=== PATIENT | male | born 1940 | race Hispanic/Latino ===

== ENCOUNTER 2017-03-10 06:02 | Day surgery (SDC) | payer MEDICARE ==
[2017-03-08 13:53] VITALS: BMI 28.5
[2017-03-10 06:37] VITALS: O2SAT 98
[2017-03-10] MEDS ORDERED: Phenylephrine 10 mg/ml Inj ONE (06:37)
[2017-03-10] MEDS ORDERED: Lidocaine 2% Inj (20ml) ONE (06:37)
[2017-03-10] MEDS ORDERED: Nitroglycerin 50mg in D5W 0 MG/0 ML BOTTLE IV ONE (06:38)
[2017-03-10] MEDS ORDERED: Iohexol 350mgl/ml 50 ML ONE (06:38)
[2017-03-10] MEDS ORDERED: Iodixanol 320 MG/ML 200 ML BOTTLE IV ONE (06:38)
[2017-03-10] MEDS ORDERED: Iodixanol 320 MG/ML 100 ML BOTTLE IV ONE (06:38)
[2017-03-10] MEDS ORDERED: Midazolam 2 MG/2 ML VIAL ONE ×2 (06:54→07:28)
[2017-03-10] MEDS ORDERED: Sodium Chloride 0.9% 1,000 ML IV SCH (08:45)
[2017-03-10] MEDS ORDERED: Metoprolol Succinate 50 mg XL Tab PO SCH (10:00)
--- NOTE | 2017-03-10 11:41 | CARD ---
APPROVED REPORT EKG Measurement Heart [id number] [place] [id number] <Conclusion> Sinus bradycardia Inferior infarct, age undetermined Abnormal ECG
[2017-03-10 14:18] VITALS: PULSE 56
[2017-03-10] MEDS: Insulin Reg-LOW-Coverage SC SCH ×2 (14:32→16:30)
[2017-03-10 15:03] VITALS: BP 136/79; RESP 18; TEMP 98.7
[2017-03-10] MEDS ORDERED: Insulin Reg-LOW-Coverage SC SCH (16:30)
--- NOTE | 2017-03-10 19:06 | CARD ---
APPROVED REPORT EKG Measurement Heart [id number] <Conclusion> Sinus bradycardia Inferior infarct, age undetermined Poor R Progression V1-V3.
--- NOTE | 2017-03-11 08:23 | CARDCATH ---
CARDIAC CATHETERIZATION REPORT PROCEDURE DATE: 03/10/2017 PROCEDURES: 1. Selective left and right coronary angiography. 2. Left ventriculography. 3. Percutaneous coronary intervention of obtuse marginal branch. 4. Right femoral arteriography. 5. Angio-Seal deployment. HISTORY: This is a 76-year-old male with known coronary artery disease, status post prior inferior myocardial infarction and PCI of his RCA and LAD who has had worsening chest discomfort. A recent stress test showed evidence of inferolateral and basal anterolateral defect suggestive of ischemia and cardiac catheterization was recommended. INDICATIONS: As above. FINDINGS: HEMODYNAMICS: The aortic pressure was 120/70 with left ventricular pressure of 120/10. CORONARY ANATOMY: 1. The left mainstem was normal. 2. The left anterior descending artery had mild 40% lesion proximally. The previously placed stent in the early mid portion of the vessel was widely patent. The distal vessel had mild irregularities. The diagonal branches were moderate size with mild irregularities. 3. The left circumflex artery, which gave rise to one large obtuse marginal branch. The circumflex artery was mildly calcified in this proximal segment and moderately tortuous. The obtuse marginal vessel had a complex 90% lesion in its mid portion. After the lesion, the vessel bifurcated into two moderate size subbranches. 4. The right coronary artery was dominant. The previously placed stent in mid portion had 50% in-stent restenosis and the distal stent had 60% in-stent restenosis well. Beyond this stent, the vessel was totally occluded and distal vessel filled the right to left collaterals. LEFT VENTRICULOGRAPHY: Left ventriculogram was performed with hand injection only in the VALVERDE projection. This revealed evidence of mild posterior basal hypokinesis with an overall ejection fraction of 50%. CORONARY INTERVENTION: Given the above, attempted PCI of the obtuse marginal branch was then performed. The lesion in the left circumflex artery was successfully crossed with the use of a [place] wire. Following this, a 2.5 x 12 mm Sprinter balloon was advanced and several inflation was performed to 8 atmospheres for 30 seconds at the side of lesion. The balloon was then withdrawn. Following this attempts to advanced a 2.75 x 18 mm Resolute drug eluting stent was unsuccessful. A Choice PT wire was taken and advanced into the distal circumflex as well to serve as a clarita wire. An attempts were then made to advanced the stent balloon again without success due to the proximal tortuosity and calcification. The stent balloon was then removed and initial 2.5 mm Sprinter balloon was advanced and low pressure inflations were performed in the tortuous segment of the proximal circumflex. Following this, the 2.75 x 18 mm Resolute stent was then successfully advanced and deployed to 12 atmosphere for 45 seconds. There was 0% residual stenosis following intervention. They did appear to be evidence of a distal small dissection likely induced by the wire. An attempts were then made to advanced the 2.5 x 12 mm Resolute drug-eluting stent into the distal vessel; however, the stent could not passed the proximal calcified segment. Again inflations were performed of the initial 2.5 mm balloon in the tortuous segment vessel; however, repeat attempts to advanced the stent was unsuccessful. Followup angiography reveals the dissection to be stable and non-flow limiting. REBECA grade 3 flow was present before and after the intervention. The patient was watching the catheter and was chest pain free with no evidence of adverse affect from the small dissection. A total of 4000 units of intravenous heparin had been administered and ACT was 220 seconds during the procedure. CONCLUSION: 1. Patent LAD and RCA stent with moderate RCA in-stent restenosis and total occlusion of the distal vessel with left to right collaterals. 2. Severe obtuse marginal stenosis successfully treated with placement of a 2.75 x 18 mm Resolute drug-eluting stent. 3. Mildly reduced LV systolic function. RECOMMENDATIONS: Aspirin and Plavix therapy will be continued for at least 1 year. Continue risk factors control as advised. Hakeem Ibrahim MD cc: Lefty Collins MD
== END 2017-03-10 21:28 | disposition home or self-care (01) ==
LOC: CATH 06:02 → 2RSO 08:53 → CATH 21:28
PROVIDERS: ATTEND Internal Medicine Cardiovascular Disease
DX: I25.10 Atherosclerotic heart disease of native coronary artery without angina pectoris (principal); T82.858A Stenosis of other vascular prosthetic devices, implants and grafts, initial encounter; I25.82 Chronic total occlusion of coronary artery; I25.2 Old myocardial infarction; I10 Essential (primary) hypertension; E11.9 Type 2 diabetes mellitus without complications; Z95.5 Presence of coronary angioplasty implant and graft
CPT/HCPCS: 36415; 82948; 85175; 86850; 86900; 93005; 93458; 99152; 99153; C1725; C1769 ×3; C1874; C1887; C2629; C9600; J1644 ×2; J2250; J3010; J7040 ×2; Q9967 ×2

== ENCOUNTER 2017-08-02 11:58 | Inpatient (IN) | payer MEDICARE ==
--- NOTE | 2017-08-02 13:55 | ED PDOC ---
Arrival/HPI - General Chief Complaint: Lower Extremity Problem/Injury Time Seen by Provider: 08/02/17 13:24 Historian: Patient - History of Present Illness Narrative History of Present Illness (Text): 08/02/17 13:50 77 year old male, whose past medical history includes diabetes, presents to the emergency department sent by Dr. Surekha Salguero for admission for right toe infection. Patient states he noticed a small infection on the toe area which he scratched and later becam red and infected. Patient denies any fever, chills, chest pain, shortness of breath, nausea, vomiting, diarrhea, urinary symptoms, back pain, neck pain, headache, dizziness, or any other complaints. PMD: Dr. Miller Symptom Onset: Gradual Symptom Course: Unchanged Activities at Onset: Light Context: Home Past Medical History - Provider Review Nursing Documentation Reviewed: Yes - Tetanus Immunization Tetanus Immunization: Unknown - Cardiac Hx Cardiac Disorders: Yes Hx Hypertension: Yes - Pulmonary Hx Respiratory Disorders: No - Neurological Hx Neurological Disorder: No - HEENT Hx HEENT Disorder: Yes Hx Cataracts: Yes Other/Comment: WEARS RX GLASSES - Renal Hx Renal Disorder: Yes Hx Kidney Stones: Yes - Endocrine/Metabolic Hx Endocrine Disorders: Yes Hx Diabetes Mellitus Type 2: Yes Hx Hypothyroidism: Yes (pt denies) - Hematological/Oncological Hx Blood Disorders: No - Integumentary Hx Dermatological Disorder: Yes Other/Comment: CELLULITIS OF TOE,DIABETIC FOOT INFECTION - Musculoskeletal/Rheumatological Hx Musculoskeletal Disorders: No - Gastrointestinal Hx Gastrointestinal Disorders: No - Genitourinary/Gynecological Hx Genitourinary Disorders: Yes Hx Prostate Problems: Yes (BPH) - Psychiatric Hx Psychophysiologic Disorder: No Hx Substance Use: No - Surgical History Hx Coronary Stent: Yes Hx Orthopedic Surgery: Yes (L KNEE) - Anesthesia Hx Anesthesia Reactions: No Hx Malignant Hyperthermia: No - Suicidal Assessment Feels Threatened In Home Enviroment: No Family/Social History - Physician Review Nursing Documentation Reviewed: Yes Family/Social History: No Known Family HX Smoking Status: Former Smoker Hx Alcohol Use: Yes (RARELY ON OCCASION) Hx Substance Use: No Hx Substance Use Treatment: No Allergies/Home Meds Allergies/Adverse Reactions: Allergies No Known Allergies Allergy (Verified 08/02/17 12:42) Home Medications: Home Meds Medication Instructions Recorded Confirmed Atorvastatin Calcium [Lipitor] 20 mg PO DAILY 11/02/12 08/02/17 Solifenacin Succinate [Vesicare] 5 mg PO DAILY 11/02/12 08/02/17 Clopidogrel [Plavix] 75 mg PO DAILY 02/01/13 08/02/17 Allopurinol [Zyloprim] 300 mg PO DAILY 03/08/17 08/02/17 Aspirin [Aspirin EC] 325 mg PO DAILY 03/08/17 08/02/17 Enalapril Maleate [Vasotec] 2.5 mg PO DAILY 03/08/17 08/02/17 Insulin Aspart, Recombinant 10 unit SC ACBD 03/08/17 08/02/17 [Novolog] Insulin Detemir [Levemir] 24 unit SC HS 03/08/17 08/02/17 Review of Systems - Physician Review All systems were reviewed & negative as marked: Yes - Review of Systems Constitutional: absent: Fevers, Other (Chills) Respiratory: absent: SOB Cardiovascular: absent: Chest Pain Gastrointestinal: absent: Diarrhea, Nausea, Vomiting Musculoskeletal: absent: Back Pain, Neck Pain Skin: Other (Right toe infection) Neurological: absent: Headache, Dizziness Physical Exam Vital Signs Reviewed: Yes Vital Signs Temp Pulse Resp BP Pulse Ox 08/02/17 17:20 74 18 151/83 H 97 08/02/17 16:13 98.5 F 70 24 153/74 H 95 08/02/17 14:00 80 18 149/88 98 08/02/17 12:44 97.7 F 79 16 131/78 95 Temperature: Afebrile Blood Pressure: Normal Pulse: Regular Respiratory Rate: Normal Appearance: Positive for: Well-Appearing, Non-Toxic, Comfortable Pain Distress: None Mental Status: Positive for: Alert and Oriented X 3 - Systems Exam Head: Present: Atraumatic, Normocephalic Pupils: Present: PERRL Extroacular Muscles: Present: EOMI Conjunctiva: Present: Normal Mouth: Present: Moist Mucous Membranes Neck: Present: Normal Range of Motion Respiratory/Chest: Present: Clear to Auscultation, Good Air Exchange. No: Respiratory Distress, Accessory Muscle Use Cardiovascular: Present: Regular Rate and Rhythm, Normal S1, S2. No: Murmurs Abdomen: Present: Normal Bowel Sounds. No: Tenderness, Distention, Peritoneal Signs Back: Present: Normal Inspection Upper Extremity: Present: Normal Inspection. No: Cyanosis, Edema Lower Extremity: Present: Other (Right foot bandaged ). No: Edema Neurological: Present: GCS=15, CN II-XII Intact, Speech Normal Skin: Present: Warm, Dry, Normal Color. No: Rashes Psychiatric: Present: Alert, Oriented x 3, Normal Insight, Normal Concentration Medical Decision Making ED Course and Treatment: 08/02/17 13:50 Impression: 77 year old male presents for evaluation and admission for right toe infection. Patient sent in by Dr. Salguero. Pt past medical history includes diabetes. Plan: -- Labs -- Blood Culture -- Foot Right 3 Views X-Ray -- Reassess and disposition Progress Notes: - Lab Interpretations Lab Results: 08/02/17 13:40 08/02/17 13:40 Lab Results 08/02/17 13:40: Sodium 138, Potassium 4.5, Chloride 101, Carbon Dioxide 25, Anion Gap 16, BUN 20, Creatinine 1.0, Est GFR ( Amer) > 60, Est GFR (Non- Af Amer) > 60, Random Glucose 218 H, Calcium 9.6, Total Bilirubin 1.0, AST 20, ALT 31, Alkaline Phosphatase 88, Total Protein 6.9, Albumin 3.9, Globulin 3.0, Albumin/Globulin Ratio 1.3 08/02/17 13:40: WBC 8.1, RBC 4.72, Hgb 14.9, Hct 44.1, MCV 93.4, MCH 31.6, MCHC 33.8, RDW 13.3, Plt Count 152, MPV 10.6, Gran % 81.6 H, Lymph % (Auto) 8.9 L, Lipscomb % (Auto) 8.4 H, Eos % (Auto) 0.7 L, Baso % (Auto) 0.4, Gran # 6.58 H, Lymph # (Auto) 0.7 L, Lipscomb # (Auto) 0.7 H, Eos # (Auto) 0.1, Baso # (Auto) 0.03 I have reviewed the lab results: Yes - RAD Interpretation Radiology Orders: 08/02/17 13:47 FOOT RIGHT 3 VIEWS ROUTINE [RAD] Stat - Medication Orders Current Medication Orders: Allopurinol (Zyloprim) 300 mg PO DAILY [facility] Last Admin: 08/02/17 17:23 Dose: Aspirin (Ecotrin) 325 mg PO DAILY [facility] Last Admin: 08/02/17 17:19 Dose: 325 mg Atorvastatin Calcium (Lipitor) 20 mg PO HS [facility] Clopidogrel Bisulfate (Plavix) 75 mg PO DAILY [facility] Insulin Detemir (Levemir) 24 unit SC HS [facility] Insulin Human Lispro (Humalog) 10 units SC ACBD [facility] Last Admin: 08/02/17 17:18 Dose: 10 units MAR Blood Glucose Document 08/02/17 17:18 [facility] (Rec: 08/02/17 17:19 [facility] [id number]) Blood Glucose Finger Stick Blood Glucose (70-120) 202 Subcutaneous Administrations Document 08/02/17 17:18 [facility] (Rec: 08/02/17 17:19 [facility] [id number]) Injection Site MAR Injection Site Left Arm Charges for Administration # of Subcutaneous Administrations 1 Insulin Human Regular (Humulin R High) 0 units SC ACHS [place] PRN Reason: Protocol Solifenacin Succinate [Vesicare] 5 Mg 5 mg PO DAILY [facility] Last Admin: 08/02/17 17:23 Dose: Discontinued Medications Ceftaroline Fosamil 600 mg/ (Sodium Chloride) 100 mls @ 100 mls/hr IVPB STAT STA PRN Reason: Protocol Stop: 08/02/17 16:09 Last Admin: 08/02/17 16:00 Dose: 100 mls/hr eMAR Start Stop Document 08/02/17 16:00 [facility] (Rec: 08/02/17 16:14 [facility] [id number]) Intravenous Solution Start Date 08/02/17 Start Time 16:00 End Date 08/02/17 End time 17:00 Total Infusion Time 60 - Scribe Statement The provider has reviewed the documentation as recorded by the Chavo Watters Provider Scribe Attestation: All medical record entries made by the Scribe were at my direction and personally dictated by me. I have reviewed the chart and agree that the record accurately reflects my personal performance of the history, physical exam, medical decision making, and the department course for this patient. I have also personally directed, reviewed, and agree with the discharge instructions and disposition. Disposition/Present on Arrival - Present on Arrival Any Indicators Present on Arrival: No History of DVT/PE: No History of Uncontrolled Diabetes: Yes Urinary Catheter: No History of Decub. Ulcer: No History Surgical Site Infection Following: None - Disposition Have Diagnosis and Disposition been Completed?: Yes Diagnosis: Cellulitis of toe of right foot Disposition: HOSPITALIZED Disposition Time: 14:00 Condition: STABLE
[2017-08-02 14:40] LABS: ALB/GLOB RATIO 1.3 (1.1-1.8); ALBUMIN 3.9 g/dL (3.0-4.8); ALT/SGPT 31 U/L (7-56); AST/SGOT 20 U/L (17-59); BLOOD UREA NITROGEN 20 mg/dL (7-21); CALCIUM 9.6 mg/dL (8.4-10.5); GFR AFRICAN-AMERICAN > 60; GFR NON-AFRICAN AMERICAN > 60
[2017-08-02 14:44] LABS: BASO # 0.03 K/mm3 (0.0-2.0); BASO % 0.4 % (0.0-3.0); EOS # 0.1 (0.0-0.7); EOS % 0.7 % (1.5-5.0); GRAN # 6.58 (1.4-6.5); GRAN % 81.6 % (50.0-68.0); HEMOGLOBIN 14.9 g/dL (14.0-18.0); LYMPH # 0.7 (1.2-3.4); LYMPH % 8.9 % (22.0-35.0); MEAN CELL VOLUME 93.4 fl (80.0-105.0); MEAN CORPUSCULAR HEMOGLOBIN 31.6 pg (25.0-35.0); MEAN CORPUSCULAR HGB CONC 33.8 g/dl (31.0-37.0); MEAN PLATELET VOLUME 10.6 fl (7.0-11.0); MONO # 0.7 (0.1-0.6); MONO % 8.4 % (1.0-6.0); RBC 4.72 10^6/uL (3.5-6.1); RED CELL DISTRIBUTION WIDTH 13.3 % (11.5-14.5); WHITE BLOOD COUNT 8.1 10^3/ul (4.5-11.0)
[2017-08-02] MEDS ORDERED: Ceftaroline 600 MG in Sodium Chloride 0.9% 100 ML IVPB STA (15:10)
--- NOTE | 2017-08-02 16:17 | RAD ---
PROCEDURE: Right Foot Radiographs. HISTORY: great toe infection COMPARISON: None. FINDINGS: BONES: Bone alignment and mineralization are normal. There is acute fracture. There is relative lucency in the lateral base of the distal phalanx of the great toe. There is a prominent plantar calcaneal spur. 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 There is mild degenerative osteoarthrosis in the talonavicular joint. SOFT TISSUES: There is mild soft tissue swelling in the great toe. OTHER FINDINGS: Atherosclerotic vascular calcifications are present. IMPRESSION: Lucency in the lateral base of the distal phalanx of the great toe could represent early osteomyelitis however no definite evidence for bone destruction or cortical erosion. Mild soft tissue swelling in the great toe may be related to cellulitis. If clinically indicated, MRI may be performed for definitive evaluation.
[2017-08-02] MEDS: Aspirin 325 mg EC Tablets PO SCH ×3 (17:18→17:24)
[2017-08-02] MEDS: Insulin Lispro 1 UNITS/0.01 ML SC SCH (17:18)
[2017-08-02] MEDS: SOLIFENACIN SUCCINATE 5 MG PO SCH (17:23)
[2017-08-02] MEDS: Vancomycin 1gm in NS 250ml 1 GM/250 ML BAG IVPB SCH (22:00)
[2017-08-02] MEDS: Insulin Detemir 100 units/ml Vial (Levemir) SC SCH (22:00)
[2017-08-02] MEDS: Insulin Reg-HIGH-Coverage SC SCH (22:08)
[2017-08-02 23:13] VITALS: BMI 31.1
[2017-08-02] MEDS ORDERED: Influenza Vaccine 60 mcg/0.5 mL SYR (4YR UP) IM ONE (23:13)
[2017-08-02] MEDS ORDERED: Pneumococcal 23-Valent Vaccine IM ONE (23:13)
[2017-08-03] MEDS: Insulin Lispro 1 UNITS/0.01 ML SC SCH ×2 (08:01→17:39)
[2017-08-03] MEDS: Insulin Reg-HIGH-Coverage SC SCH ×4 (08:01→21:33)
[2017-08-03] MEDS: Vancomycin 1gm in NS 250ml 1 GM/250 ML BAG IVPB SCH ×2 (08:07→20:03)
[2017-08-03] MEDS: Aspirin 325 mg EC Tablets PO SCH (09:40)
[2017-08-03] MEDS: SOLIFENACIN SUCCINATE 5 MG PO SCH (11:00)
--- NOTE | 2017-08-03 13:45 | US ---
PROCEDURE: Lower extremity DALE exam HISTORY: Peripheral vascular disease with pain and ulceration. Diabetes. Previous smoker PHYSICIAN(S): Ricky Moore MD. FINDINGS: The right resting DALE is borderline abnormal, 0.89. The left resting DAEL is normal, 0.9 The brachial systolic pressures are symmetric. The high thigh pressures are noncompressible. The high thigh PVR waveforms are normal and symmetric. The calf PVR waveforms augment normally. No significant gradients are noted across the thighs. The ankle PVR waveforms are pulsatile and relatively normal. The metatarsal waveforms are moderately blunted. This could represent pedal occlusive disease. IMPRESSION: 1. Borderline abnormal right DALE at rest. 2. Possible pedal occlusive disease.
[2017-08-03] MEDS: Insulin Detemir 100 units/ml Vial (Levemir) SC SCH (21:40)
[2017-08-04] MEDS: Piperacillin/Tazobact 3.375 gm 100 ML IVPB SCH ×4 (00:30→17:37)
--- NOTE | 2017-08-04 02:46 | HP ---
DATE OF EXAM: CHIEF COMPLAINT AND HISTORY OF PRESENT ILLNESS: This is a 77-year-old male who is coming in to the hospital with past medical history of diabetes. The patient was seen by Dr. Salguero in her office and was found to have a right toe infection. It was not improving. It has failed outpatient treatments, so, the patient had been advised to go to the ER for further evaluation. The patient had no complaints of any fever, no chills. No nausea, no vomiting, no chest pain, abdominal pain or back pain. No dysuria or frequency. No nocturia. REVIEW OF SYSTEMS: All other review of symptoms are within normal limits except what was mentioned. ALLERGIES: NO KNOWN DRUG ALLERGIES. HOME MEDICATIONS: Has been reviewed on the [facility]. He is on Lipitor, Vesicare, Plavix, allopurinol, aspirin, enalapril, Novolog, Levemir. PAST MEDICAL HISTORY: BPH, hypertension, dyslipidemia, diabetes type 2. PAST SURGICAL HISTORY: Appendectomy, inguinal hernia repair. SOCIAL HISTORY: He does drink beer socially. He quit smoking about 40 years ago. FAMILY HISTORY: Noncontributory. PHYSICAL EXAMINATION: VITAL SIGNS: Temperature is 97.9, pulse is 60, blood pressure is 121/75, respirations 20, O2 saturation is 95%. Height is 6 feet, weight is 230 pounds, BMI is 31.2. GENERAL: The patient is lying in bed, uncomfortable, and in no acute distress. HEENT: Atraumatic and normocephalic. Anicteric sclerae. Moist mucosa. [place] conjunctivae. No oral lesions. NECK: No JVD, anterior and posterior adenopathy, thyromegaly, or bruits. CARDIOVASCULAR: S1 and S2 regular. No murmur, rubs, or gallop. LUNGS: Clear to auscultation bilaterally. No wheezes, rales, or rhonchi. ABDOMEN: Bowel sounds are positive. Soft, nontender and nondistended. No hepatosplenomegaly. No rebound and no guarding EXTREMITIES: No cyanosis, clubbing, or edema. NEUROLOGIC: No facial asymmetry. Tongue is midline. No uvula deviation. Power is 5/5 upper extremity and lower extremity. Sensation intact in upper extremity and lower extremity. PSYCHIATRIC: He is awake, alert and oriented x3. No anxiety or depression. He has normal affect. GENITOURINARY: No CVA tenderness. VASCULAR: 2+ pulses in the carotid pulses and pedal pulses. SKIN: No erythema or nodules SPINE: Shows normal curvature. LABORATORY DATA: White count of 8.1, hemoglobin 14.9. Chemistry shows sodium 138, potassium 4.5, hemoglobin A1c is 8.1. C-reactive protein is greater than 15. Right foot x-ray done shows lucency in the lateral base of the distal phalanx of the right toe consistent with early osteomyelitis. Lower extremity arterial Doppler showed borderline abnormal right ABIs at rest. ASSESSMENT: 1. Right toe ulcer. 2. Diabetes type 2. 3. Dyslipidemia. 4. Hypertension. 5. Obesity with body mass index of 31. 6. Hyperuricemia. PLAN: The patient is going to be admitted to the hospital. The patient has a foot ulcer that failed outpatient treatment. He had a diabetic foot ulcer, so will need further management by Podiatry. I have asked Dr. Salguero to continue to follow the patient as an inpatient. I will get Dr. Alicea for consultation as well. The patient was given the flu shot. He is on aspirin daily. He may have peripheral arterial disease, but mild on the ultrasound. He is on Lipitor for dyslipidemia. I will increase his statin therapy. The patient is on Plavix daily. He is going to continue with vancomycin for antibiotic. He is on allopurinol for his hyperuricemia. He is on a carbohydrate consistent diet. He is on insulin with coverage. His blood cultures have been done. The blood cultures are negative x2. We will await for the input from the consultants. The patient may need an MRI as the CT is abnormal. Adal Guzman MD
--- NOTE | 2017-08-04 03:57 | CON ---
DATE: 08/03/2017 CHIEF COMPLAINT: Right foot infection x1 week. HISTORY OF PRESENT ILLNESS: This is a 77-year-old male with past medical history of hypertension, coronary artery disease, diabetes mellitus, referred by Dr. Salguero for admission and a right foot infection. The patient denies any fevers, any chills, nausea or vomiting. No chest pain. No diarrhea or constipation. PAST MEDICAL HISTORY: Significant for diabetes mellitus, coronary artery disease, hypertension, high cholesterol and BPH. PAST SURGICAL HISTORY: Significant for left hernia surgery, appendectomy, left temporal skin biopsy in May 2011. The patient also with cardiac stents placement and a left knee replacement 12 years ago. ALLERGIES: THE PATIENT HAS NO KNOWN ALLERGIES. MEDICATIONS AT HOME: Noted to be VESIcare, insulin, glyburide, enalapril, Plavix. PHYSICAL EXAMINATION: VITAL SIGNS: The patient's temperature is 98, blood pressure is 121/75, respiratory rate of 20, heart rate of 86. HEENT: Unremarkable. NECK: Supple. LUNGS: Decreased breath sounds. HEART: Normal S1, S2. ABDOMEN: Soft, nontender. EXTREMITIES: Examination of the right foot has erythema, big toe has ulcer and necrotic area. LABORATORY DATA: Reveals a white count of 8.1, hemoglobin of 14, platelets of 152. Sed rate is 26. BUN of 20, creatinine of 1.0. C-reactive protein is greater than 15. Blood cultures are negative. ASSESSMENT AND PLAN: A 77-year-old male with hypertension, coronary artery disease, diabetes, high cholesterol, benign prostatic hypertrophy, presenting with a right foot cellulitis and right big toe ulcer and must rule out underlying osteomyelitis and peripheral vascular disease. We will check on the culture results and currently we can start the patient on vancomycin, pending initial workup results, we will follow closely with you, and Alea. Korey Alicea MD
[2017-08-04 07:46] VITALS: RESP 20
--- NOTE | 2017-08-04 08:22 | CON ---
DATE: 08/03/2017 HISTORY OF PRESENT ILLNESS: A 77-year-old diabetic male seen at bedside for consultation, evaluation and management of a diabetic right great toe infection. The patient states that he noticed a small opening of skin on his right great toe approximately 3 weeks ago and he attempted to remove some dry skin in the area and subsequently became infected. He noticed that it had become red hot swollen, and he went to see Dr. Salguero at the wound center where he was probably admitted. PAST MEDICAL HISTORY: Includes insulin-dependent diabetes with peripheral neuropathy and peripheral vascular disease, hypothyroidism, renal disease, BPH, CAD and hypertension. PAST SURGICAL HISTORY: Includes previous foot surgery from diabetic ulcerations and left knee surgery as well as coronary stenting. FAMILY HISTORY: Unremarkable. SOCIAL HISTORY: There is no history of substance abuse, no history of alcohol abuse. ALLERGIES: THE PATIENT HAS NO KNOWN DRUG ALLERGIES. HOME MEDICATIONS: Include Lipitor, Plavix, Vesicare, Vasotec, aspirin, Novolog and Levemir. PHYSICAL EXAMINATION: VITAL SIGNS: Revealed temperature of 98, pulse rate of 68, blood pressure of 134/72, respiratory rate of 20. EXTREMITIES: Nonpalpable pedal pulses noted bilaterally. Absent pedal hair growth noted bilaterally. The patient is unable to detect 5.07 g monofilament wire testing bilaterally. Capillary filling time is delayed in all digits. +1 nonpitting lower extremity edema noted bilaterally. There is a full-thickness ulceration located on the medial aspect of the right hallux. Right hallux is edematous and erythematous. There is noted to be no purulent drainage emanating from the ulceration. Ulceration is irregularly shaped and measures approximately 2.5 cm x 1.2 cm x 0.1 cm. There is noted to be a small patch of gangrenous tissue. There is noted to be a small island of gangrenous tissue. There is no malodor and there is no signs of ascending cellulitis. LABORATORY DATA: Reveal a white count of 8.1, hemoglobin of 14.9, hematocrit of 44.1, platelet count of 152, and ESR of 26. Culture taken on 08/02/2017 of the right hallux ulceration reveals many Gram-negative rods and many Gram-negative cocci. X-ray report reveals lucency in the lateral base of the distal phalanx of the right great toe, which could indicate early osteomyelitis. However, there is no cortical destruction or erosion noted. Arterial Dopplers revealed borderline abnormal DALE at rest and possible pedal occlusive disease. ASSESSMENT: Diabetic ulceration on the right hallux with accompanying cellulitis. PLAN: The patient's wound was seen, and new culture was taken and submitted for sensitivities. The wound was cleansed with normal sterile saline. Application of Xeroform and a dry sterile dressing was applied. An MRI was ordered for more definitive diagnosis to rule out osteomyelitis. Consult with Dr. Ricky Moore to evaluate arterial Dopplers and determine if vascular intervention is warranted. Recommend Infectious Disease consult to evaluate culture and sensitivities and prescribe accordingly. The patient is currently on ceftaroline and vancomycin IV empirically. We will order a forefoot offloading shoe to offload the hallux once patient is ambulatory. We will order full multi podus boots to offload both heels while the patient is hospitalized. We will await MRI results and vascular input. We will await infectious disease evaluation of cultures and sensitivities. Danial Wheeler DPM
[2017-08-04] MEDS: Insulin Reg-HIGH-Coverage SC SCH ×4 (08:26→21:47)
[2017-08-04] MEDS: Insulin Lispro 1 UNITS/0.01 ML SC SCH ×2 (08:26→16:50)
--- NOTE | 2017-08-04 09:26 | MRI ---
PROCEDURE: MRI of the right foot without contrast HISTORY: DFU right hallux COMPARISON: TECHNIQUE: MRI of the right foot was performed in multiple planes using multiple pulse sequences. FINDINGS: There is marrow edema in the 1st distal phalanx consistent with osteomyelitis. The proximal phalanx and metatarsal are intact with no marrow edema. The remainder the foot is unremarkable. IMPRESSION: Marrow edema in the 1st distal phalanx consistent with osteomyelitis
[2017-08-04] MEDS: Vancomycin 1gm in NS 250ml 1 GM/250 ML BAG IVPB SCH ×2 (09:46→21:51)
[2017-08-04] MEDS: Aspirin 325 mg EC Tablets PO SCH (09:50)
[2017-08-04] MEDS: SOLIFENACIN SUCCINATE 5 MG PO SCH (09:51)
--- NOTE | 2017-08-04 11:56 | CP.PCM.PN ---
Subjective - Date & Time of Evaluation Date of Evaluation: 08/04/17 Time of Evaluation: 10:40 - Subjective Subjective: Podiatry Progress Note- Dr. Salguero 77 y.o male seen at bedside for infected right hallux ulceration. Patient is seen resting comfortably in bed, in NAD, and AA0x3. Patient denies acute overnight events. Denies nausea, vomiting, shortness of breath, chest pain, chills or fevers. No new pedal complain. Patient reports that the swelling to his right foot appears smaller. Objective - Vital Signs/Intake and Output Vital Signs (last 24 hours): Temp Pulse Resp BP Pulse Ox 98.1 F 63 20 146/64 100 08/04/17 07:45 08/04/17 07:45 08/04/17 07:45 08/04/17 07:45 08/04/17 07:45 Intake and Output: 08/04/17 08/04/17 06:59 18:59 Intake Total 900 Balance 900 - Medications Medications: Current Medications Allopurinol (Zyloprim) 300 mg PO DAILY [facility] Last Admin: 08/04/17 09:50 Dose: 300 mg Aspirin (Ecotrin) 325 mg PO DAILY [facility] Last Admin: 08/04/17 09:50 Dose: 325 mg Atorvastatin Calcium (Lipitor) 40 mg PO HS [facility] Last Admin: 08/03/17 21:41 Dose: 40 mg Clopidogrel Bisulfate (Plavix) 75 mg PO DAILY [facility] Last Admin: 08/04/17 09:50 Dose: 75 mg Vancomycin HCl (Vancomycin 1gm) 1 gm in 250 mls @ 167 mls/hr IVPB Q12H [facility] PRN Reason: Protocol Last Admin: 08/04/17 09:46 Dose: 167 mls/hr Piperacillin Sod/Tazobactam Sod (Zosyn 3.375 In Ns 100ml) 100 mls @ 200 mls/hr IVPB Q6 [facility] PRN Reason: Protocol Stop: 08/12/17 00:01 Last Admin: 08/04/17 05:35 Dose: 200 mls/hr Insulin Detemir (Levemir) 24 unit SC HS [facility] Last Admin: 08/03/17 21:40 Dose: 24 unit Insulin Human Lispro (Humalog) 10 units SC ACBD [facility] Last Admin: 08/04/17 08:26 Dose: 10 units Insulin Human Regular (Humulin R High) 0 units SC ACHS [facility] PRN Reason: Protocol Last Admin: 08/04/17 08:26 Dose: 4 units Solifenacin Succinate [Vesicare] 5 Mg 5 mg PO DAILY [facility] Last Admin: 08/04/17 09:51 Dose: Not Given - Constitutional Appears: Well, Non-toxic, No Acute Distress - Extremities Exam Extremities Exam: absent: Calf Tenderness Additional comments: Vasc: DP and PT nonpalpable, CFT delayed to digits, temperature gradient WNL, + 1 nonpitting edema to the LE Ortho: pain to palpation to right hallux Neuro: protective and gross protective sensation diminished Derm: full thickness ulceration noted to the medial plantar aspect of the right hallux, with ulceration measuring approximately 2.5 cm x1. 2cm x.1 c. Erythema and edema slightly improved. No purulence drainage noted from ulceration. There is a small partch of gangrenous tissue. No malodor or signs of ascending cellulitis - Neurological Exam Neurological Exam: Alert, Awake, Oriented x3 - Psychiatric Exam Psychiatric exam: Normal Affect, Normal Mood Assessment and Plan - Assessment and Plan (Free Text) Assessment: 77 y.o male with infected right hallux ulceration with accompanying cellulitis Plan: -Patient examined and evaluated -Discussed plan in detail with attending Dr. Salguero -Labs, charts, vitals reviewed -[id number] OM at lateral base of distal phalanx of great toe -MRI- marrow edema in 1st distal phalanx consistent with osteomyelitis -DALE impression: 1. borderline abnomral right DALE at rest, possible pedal occlusive disease; DALE right resting .89 and left resting normal at .9 -Ulceration cleansed with saline solution, dressed with xeroform and dsd -will order forefoot offloading shoe to offload hallux once patient is ambulatory -Will order multipodus boots bilaterally- to be worn at all times while in bed -c/w abx per ID, will f/u on abx recommendations
--- NOTE | 2017-08-04 21:09 | PN ---
DATE: SUBJECTIVE: The patient has no complaints of any chest pain, no shortness of breath, no headaches, no dizziness. PHYSICAL EXAMINATION: VITAL SIGNS: Temperature is 98.3, pulse of 66, blood pressure 143/81, respirations 20. GENERAL: The patient is lying in bed, flat, comfortable. HEENT: No oral lesion. Anicteric sclerae. Moist mucosa. NECK: No JVD, adenopathy, or thyromegaly. CARDIOVASCULAR: S1 and S2, regular. No murmurs, rubs, or gallops. LUNGS: Clear to auscultation bilaterally. No wheeze, rales, or rhonchi. ABDOMEN: Bowel sounds are positive, soft, nontender and nondistended. EXTREMITIES: No cyanosis, clubbing or edema. LABS: White count of 8.1, hemoglobin 14.9. Creatinine is 1.0. MRI of the right foot shows in the first distal phalanx consistent with osteomyelitis. ASSESSMENT: 1. Osteomyelitis of the right first phalanx secondary to methicillin-susceptible Staphylococcus aureus. 2. Diabetes type 2. 3. Dyslipidemia. 4. Hypertension. 5. Hyperuricemia. 6. Obesity with the body mass index of 31. PLAN: The patient is currently comfortable, has been followed by Podiatry. The patient has also been followed by Infectious Disease. The patient is on aspirin. He will continue with Levemir for diabetes and Lipitor for his dyslipidemia. The patient is on vancomycin for his antibiotics as well as Zosyn. He is going to continue his allopurinol. He is on carbohydrate consistent diet. He will need prolonged antibiotics because of his osteomyelitis. We will await further input from Podiatry and Infectious Disease about the antibiotics and length of treatment. The patient did have wound cultures done on 08/02/2017 that shows a Staph aureus species with heavy growth. There was methicillin-sensitive Staph aureus. The patient is sensitive to ciprofloxacin, but may need vancomycin. The patient is also sensitive to tetracycline, so not sure if doxycycline would be a good option. We will await further input from Infectious Disease. Adal Guzman MD [facility] # [id number]
[2017-08-04] MEDS: Insulin Detemir 100 units/ml Vial (Levemir) SC SCH (21:51)
[2017-08-05] MEDS: Piperacillin/Tazobact 3.375 gm 100 ML IVPB SCH ×3 (00:09→12:32)
--- NOTE | 2017-08-05 02:25 | CON ---
DATE: 08/04/2017 TIME: 06:45 p.m. CHIEF COMPLAINT/HISTORY OF PRESENT ILLNESS: This is a 77-year-old diabetic with peripheral vascular disease. He presents with an ulceration and infection of his right great toe. He states that this started 2-3 weeks ago after manipulation of the nail of the right great toe. It is swollen. He is neuropathic and experiences only mild pain with this infection. He denies fever, sweats or chills. PAST MEDICAL HISTORY: Significant for diabetes, PVD, coronary artery disease, status post stent placement and hypertension. PHYSICAL EXAMINATION: EXTREMITIES: He has palpable femoral and popliteal pulses. His pedal pulses are not palpable. He has significant cellulitis of his right great toe. Patches of dry gangrene are seen near the nail and medially. His MRI and plain films are consistent with osteomyelitis. His ESR is elevated. His right DALE exam is mildly abnormal. There is suggestion of some tibial disease, but his ankle PVR waveform is fairly normal. RECOMMENDATIONS: At the present time, I believe Mr. Claire can be treated conservatively with IV antibiotics for his osteomyelitis and wound care. If he has progression of ischemia of the toe, an angiogram can be performed at that time to evaluate his clinical tibial and pedal disease. Fortunately, his creatinine is normal. Ricky Moore MD MTDD
--- NOTE | 2017-08-05 07:49 | PN ---
DATE: 08/05/2017 SUBJECTIVE: The patient has no complaints of any chest pain. No shortness of breath. No headaches or dizziness. PHYSICAL EXAMINATION: VITAL SIGNS: Temperature 98.3, pulse of 66, blood pressure is 143/81, respirations 20. GENERAL: The patient is lying in bed, flat, comfortable. HEENT: No oral lesion. Anicteric sclerae. Moist mucosa. NECK: No JVD, adenopathy, or thyromegaly. CARDIOVASCULAR: S1 and S2, regular. No murmurs, rubs, or gallops. LUNGS: Clear to auscultation bilaterally. No wheeze, rales, or rhonchi. ABDOMEN: Bowel sounds are positive, soft, nontender and nondistended. EXTREMITIES: No cyanosis, clubbing or edema. LABORATORY DATA: White count of 8.1, hemoglobin is 14.9, creatinine is 1.0. ASSESSMENT: 1. Osteomyelitis of the right first phalanx secondary to methicillin-susceptible Staphylococcus aureus. 2. Diabetes type 2. 3. Dyslipidemia. 4. Hypertension. 5. Hyperuricemia. 6. Obesity with a body mass index of 31. 7. Peripheral arterial disease. PLAN: The patient has MRI that showed that the patient has an osteomyelitis of the first toe of the right foot. The patient denied any pain. He is currently comfortable. Waiting for Infectious Disease's input regarding antibiotics. The patient was also seen by Dr. Ricky Moore. He believed that the patient does not need further interventions for the mildly abnormal ABIs that are present. The patient is on insulin detemir for his diabetes. He is on Lipitor for dyslipidemia. The patient is on Plavix. He is going to continue with antibiotics, on Zosyn and vancomycin. The patient does have a sensitive organism. I will await for the input from Podiatry as well to see if the patient requires IV antibiotics versus oral antibiotics. Adal Guzman MD
[2017-08-05] MEDS: Insulin Lispro 1 UNITS/0.01 ML SC SCH ×2 (08:27→16:26)
[2017-08-05] MEDS: Insulin Reg-HIGH-Coverage SC SCH ×4 (08:28→22:15)
[2017-08-05] MEDS: Vancomycin 1gm in NS 250ml 1 GM/250 ML BAG IVPB SCH (08:28)
--- NOTE | 2017-08-05 09:52 | PN ---
DATE: 08/04/2017 SUBJECTIVE: The patient was seen early this morning, room 562, bed 2. No fevers and chills. No nausea or vomiting. Tolerating the antibiotic well. PHYSICAL EXAMINATION: VITAL SIGNS: On exam, temperature is 98, blood pressure is 140/60, respiratory rate of 20. HEENT: Examination of HEENT is unremarkable. NECK: Supple. LUNGS: Have decreased breath sounds. HEART: Exam is normal S1, S2. ABDOMEN: Examination is soft. LABORATORY DATA: Laboratory examination reveals a white count of 8.1, hemoglobin of 14, platelets of 152 and BUN of 20, creatinine of 1.0. C-reactive protein is noted. ASSESSMENT AND PLAN: This is a 77-year-old male who was seen earlier this morning with hypertension, coronary artery disease, diabetes, high cholesterol, benign prostatic hypertrophy, presenting with right foot cellulitis, right big toe ulcer and peripheral vascular disease. Currently, on vancomycin and Zosyn. Patient had an MRI of the foot consistent with osteomyelitis. Vascular workup in progress. We will follow closely with you. Korey Alicea MD
[2017-08-05] MEDS: SOLIFENACIN SUCCINATE 5 MG PO SCH (09:54)
[2017-08-05] MEDS: Aspirin 325 mg EC Tablets PO SCH (09:54)
--- NOTE | 2017-08-05 11:05 | CP.PCM.PN ---
Subjective - Date & Time of Evaluation Date of Evaluation: 08/05/17 Time of Evaluation: 11:02 - Subjective Subjective: Podiatry Progress Note- Dr. Salguero 77 y.o male seen at bedside for infected right hallux ulceration. Patient is seen resting comfortably in bed, in NAD, and AA0x3. Patient denies acute overnight events. Patient denies n/v/sob/cp/chills or f. Patient has no new pedal complaints during visitation. Objective - Vital Signs/Intake and Output Vital Signs (last 24 hours): Temp Pulse Resp BP Pulse Ox 98.6 F 65 20 125/68 94 L 08/05/17 07:30 08/05/17 07:30 08/05/17 07:30 08/05/17 07:30 08/05/17 07:30 Intake and Output: 08/05/17 08/05/17 06:59 18:59 Intake Total 780 Balance 780 - Medications Medications: Current Medications Allopurinol (Zyloprim) 300 mg PO DAILY [facility] Last Admin: 08/05/17 09:54 Dose: 300 mg Aspirin (Ecotrin) 325 mg PO DAILY [facility] Last Admin: 08/05/17 09:54 Dose: 325 mg Atorvastatin Calcium (Lipitor) 40 mg PO HS [facility] Last Admin: 08/04/17 21:52 Dose: 40 mg Clopidogrel Bisulfate (Plavix) 75 mg PO DAILY [facility] Last Admin: 08/05/17 09:54 Dose: 75 mg Vancomycin HCl (Vancomycin 1gm) 1 gm in 250 mls @ 167 mls/hr IVPB Q12H [facility] PRN Reason: Protocol Last Admin: 08/05/17 08:28 Dose: 167 mls/hr Piperacillin Sod/Tazobactam Sod (Zosyn 3.375 In Ns 100ml) 100 mls @ 200 mls/hr IVPB Q6 [facility] PRN Reason: Protocol Stop: 08/12/17 00:01 Last Admin: 08/05/17 06:21 Dose: 200 mls/hr Insulin Detemir (Levemir) 24 unit SC HS [facility] Last Admin: 08/04/17 21:51 Dose: 24 unit Insulin Human Lispro (Humalog) 10 units SC ACBD [facility] Last Admin: 08/05/17 08:27 Dose: 10 units Insulin Human Regular (Humulin R High) 0 units SC ACHS [facility] PRN Reason: Protocol Last Admin: 08/05/17 08:28 Dose: Not Given Solifenacin Succinate [Vesicare] 5 Mg 5 mg PO DAILY [facility] Last Admin: 08/05/17 09:54 Dose: Not Given - Constitutional Appears: Well, Non-toxic, No Acute Distress - Extremities Exam Extremities Exam: absent: Calf Tenderness Additional comments: Vasc: DP and PT nonpalpable, CFT delayed to digits, temperature gradient WNL, + 1 nonpitting edema to the LE Ortho: pain to palpation to right hallux Neuro: gross and protective sensation diminished Derm: full thickness ulceration noted to the medial plantar aspect of the right hallux, with ulceration measuring approximately 2.5 cm x1. 2cm x.1 c. Erythema and edema slightly improved. Maceration noted to the surrounding periwound with hyperkeratotic skin overlaying.There is a small patch of gangrenous tissue. There is malodor today and serous drainage noted. There are no signs of ascending cellulitis/streaking however erythema is present - Neurological Exam Neurological Exam: Alert, Awake, Oriented x3 - Psychiatric Exam Psychiatric exam: Normal Affect, Normal Mood Assessment and Plan - Assessment and Plan (Free Text) Assessment: 77 y.o male with infected right hallux ulceration with accompanying cellulitis Plan: -Patient examined and evaluated -Discussed plan in detail with attending Dr. Salguero -Labs, charts, vitals reviewed -[id number] OM at right lateral base of distal phalanx of great toe -MRI- marrow edema in 1st distal phalanx consistent with osteomyelitis -DALE impression: 1. borderline abnomral right DALE at rest, possible pedal occlusive disease; DALE right resting .89 and left resting normal at .9 -Ulceration cleansed with saline solution -Using a #blade 15 and pickup, nonviable and necrotic tissue removed from wound base at the level of subcutaneous until more healthy tissue is noted; no bone exposed noted. Ulceration cleansed with saline solution, hydrogel applied, and dressed with dsd and kerlix -Discussed with patient the gold standard of treatment for OM is debridement of infected bone and possible amputation -Patient opts for conservative treatment with IV abx -Podiatry will follow patient and provide local wound care and monitoring while patient receives IV abx -Podiatry will continue to follow -c/w abx per ID, will f/u on abx recommendations -Patient to wear forefoot offloading shoe while ambulating -Multipodus boots bilaterally- to be worn at all times while in bed -Patient to follow up with Dr. Salguero in wound care in 1 week after discharge
[2017-08-05] MEDS: cefTRIAXone 2 GM IN NS 2 GM/100 ML BAG IVPB SCH (16:26)
--- NOTE | 2017-08-05 18:49 | PN ---
DATE: SUBJECTIVE: The patient is seen earlier today in room 563, bed 2. No fevers and no chills. No nausea or vomiting. PHYSICAL EXAMINATION: VITAL SIGNS: On exam, temperature is 98, blood pressure is 125/60, respiratory rate of 18. HEENT: Unremarkable. NECK: Supple. LUNGS: Have decreased breath sounds. HEART: Normal S1 and S2. ABDOMEN: Soft, nontender. LABORATORY DATA: Reveals a white count of 8.1, hemoglobin of 14, platelets of 152. Chemistries reveals the patient has a C-reactive protein that is greater than 15. The patient had an MRI of the foot consistent with osteomyelitis. Microbiologically, patient on 08/02/2017 had a toe culture which was pansensitive to Staph aureus. ASSESSMENT AND PLAN: A 77-year-old male, who was seen earlier this morning with a history of hypertension, coronary artery disease, diabetes, high cholesterol, BPH, presenting with a right foot cellulitis, right big toe ulcer and peripheral vascular disease, with a sensitive Staphylococcus aureus toe culture, osteomyelitis by MRI; we will discontinue the vancomycin and Zosyn, and treat with ceftriaxone 2 g once daily x28 days, with weekly CBC, SMA-18, sed rate, C-reactive protein. Korey Alicea MD
[2017-08-05] MEDS: Insulin Detemir 100 units/ml Vial (Levemir) SC SCH (22:15)
[2017-08-06 08:00] VITALS: BP 117/61; PULSE 61; TEMP 98.2; O2SAT 97
[2017-08-06] MEDS ORDERED: Collagenase 250 Units/gm Ointment(30 gm) TOP SCH (08:15)
[2017-08-06] MEDS: Insulin Reg-HIGH-Coverage SC SCH ×2 (08:25→11:52)
[2017-08-06] MEDS: Insulin Lispro 1 UNITS/0.01 ML SC SCH (08:25)
[2017-08-06] MEDS: Aspirin 325 mg EC Tablets PO SCH (10:07)
[2017-08-06] MEDS: cefTRIAXone 2 GM IN NS 2 GM/100 ML BAG IVPB SCH (10:46)
[2017-08-06] MEDS: SOLIFENACIN SUCCINATE 5 MG PO SCH (11:37)
[2017-08-06] MEDS ORDERED: HEPARIN SODIUM/NS 1,000 ML IV ONE (16:17)
[2017-08-06] MEDS ORDERED: Lidocaine 2% Inj (20ml) ONE (16:17)
--- NOTE | 2017-08-06 18:31 | CP.PCM.PN ---
Subjective - Date & Time of Evaluation Date of Evaluation: 08/06/17 Time of Evaluation: 12:00 - Subjective Subjective: Awaiting PICC line placement, seen patient at noontime, no fevers, no nausea, no diarrhea, no dizziness. Objective - Vital Signs/Intake and Output Vital Signs (last 24 hours): Temp Pulse Resp BP Pulse Ox 98.2 F 61 20 117/61 97 08/06/17 07:30 08/06/17 07:30 08/06/17 07:30 08/06/17 07:30 08/06/17 07:30 Intake and Output: 08/06/17 08/06/17 06:59 18:59 Intake Total 240 Balance 240 - Constitutional Appears: Non-toxic - Head Exam Head Exam: NORMAL INSPECTION - ENT Exam ENT Exam: Mucous Membranes Moist - Neck Exam Neck Exam: absent: Meningismus - Respiratory Exam Respiratory Exam: Decreased Breath Sounds - Cardiovascular Exam Cardiovascular Exam: +S1, +S2 - GI/Abdominal Exam GI & Abdominal Exam: Soft. absent: Tenderness - Extremities Exam Additional comments: right foot with dressings in place Assessment and Plan - Assessment and Plan (Free Text) Plan: Assessment Right 1st distal phalanx of the foot osteomyelitis, with MSSA CAD HTN DM dyslipidemia BPH peripheral vascular disease Plan Will need at least 4 weeks of Rocephin with weekly ESR, CRP, CBC, CMP while on antibiotics and outpatient follow up with Podiatry
--- NOTE | 2017-08-06 20:59 | VASCULAR ---
PROCEDURE: Ultrasound and fluoroscopically placed left upper extremity PICC line. HISTORY: Wound with osteomyelitis right great toe. Diabetes. Long-term IV antibiotics. Needs PICC line PHYSICIAN(S): Ricky Moore MD. TECHNIQUE: The relative risks and indications of the procedure were explained to the patient and consent obtained. The patient was placed supine on the arteriogram table and the left arm prepped and draped in the usual sterile fashion. A tourniquet was applied to the left axilla. 1% Xylocaine was used to anesthetize the skin and soft tissues at the puncture site above the elbow. The left basilic vein was punctured under direct ultrasound guidance with a micropuncture set. A 0.018 guidewire was advanced centrally and used to measure the length to the SVC/RA junction. A 5 [place] single-lumen PICC line 45 cm long was advanced to the SVC/RA junction. The catheter was flushed and secured. The patient tolerated the procedure well. IMPRESSION: 1. Ultrasound and fluoroscopically placed left upper extremity PICC line. A 5 [place] single-lumen PICC line 45 cm long was advanced to the SVC/RA junction.
--- NOTE | 2017-08-07 03:11 | DS ---
HISTORY OF PRESENT ILLNESS: The patient is a 77-year-old male who is coming to the hospital, was found to have right toe ulcer. The patient had MRI indicating that he has osteomyelitis. The patient was seen by Podiatry and Infectious Disease. The patient will need Rocephin 2 g for 4 more weeks. PICC line is going to be placed and the patient will be discharged home. He has no complaints of any chest pain, shortness of breath, headaches or dizziness. PHYSICAL EXAMINATION: VITAL SIGNS: Temperature 98.5, pulse of 63, blood pressure is 120/65, respirations 20, O2 saturation 95%. GENERAL: The patient is lying in bed, flat, comfortable. HEENT: No oral lesion. Anicteric sclerae. Moist mucosa. NECK: No JVD, adenopathy, or thyromegaly. CARDIOVASCULAR: S1 and S2, regular. No murmurs, rubs, or gallops. LUNGS: Clear to auscultation bilaterally. No wheeze, rales, or rhonchi. ABDOMEN: Bowel sounds are positive, soft, nontender and nondistended. EXTREMITIES: No cyanosis, clubbing or edema. The right phalanx is covered with dressing. ASSESSMENT: 1. Osteomyelitis of the right first phalanx, secondary to methicillin-susceptible Staphylococcus aureus. 2. Diabetes type 2. 3. Dyslipidemia. 4. Hypertension. 5. Hyperuricemia. 6. Obesity with a body mass index of 31. 7. Peripheral arterial disease. PLAN: The patient is currently comfortable. The patient is going to be placed on Rocephin 2 g daily for 4 weeks. He will also need continued followup blood work. I wrote prescriptions for that. The patient is going to be discharged home today. He is going to continue with aspirin. The patient is on Lipitor for dyslipidemia. I am going to continue with allopurinol for his hyperuricemia. The patient is on Levemir for his diabetes. He is going to follow up with Dr. Salguero for his osteomyelitis. CONDITION: Stable. ACTIVITIES: Increase as tolerated. FOLLOWUP: 1. Follow up with Dr. Collins in 1-2 weeks. 2. Follow up with Dr. Salguero in 1 week. Adal Megan, MD [facility] # [id number]
== END 2017-08-06 17:58 | disposition home or self-care (01) | DRG 638 ==
LOC: ED 11:58 → ERH 15:12 → 5RNO 17:35
PROVIDERS: ADMIT Internal Medicine Nephrology; ATTEND Internal Medicine Nephrology
PROC: 02HV33Z Insertion of Infusion Device into Superior Vena Cava, Percutaneous Approach (ICD-10-PCS; principal; 2017-08-06)
DX: E11.69 Type 2 diabetes mellitus with other specified complication (principal); M86.9 Osteomyelitis, unspecified; E11.42 Type 2 diabetes mellitus with diabetic polyneuropathy; E11.621 Type 2 diabetes mellitus with foot ulcer; E11.51 Type 2 diabetes mellitus with diabetic peripheral angiopathy without gangrene; L03.115 Cellulitis of right lower limb; L97.519 Non-pressure chronic ulcer of other part of right foot with unspecified severity; I25.10 Atherosclerotic heart disease of native coronary artery without angina pectoris; I10 Essential (primary) hypertension; N40.0 Benign prostatic hyperplasia without lower urinary tract symptoms; E78.5 Hyperlipidemia, unspecified; E66.9 Obesity, unspecified; E79.0 Hyperuricemia without signs of inflammatory arthritis and tophaceous disease; E78.00 Pure hypercholesterolemia, unspecified; E03.9 Hypothyroidism, unspecified; Z68.31 Body mass index [BMI] 31.0-31.9, adult; Z95.5 Presence of coronary angioplasty implant and graft; Z96.652 Presence of left artificial knee joint; Z87.891 Personal history of nicotine dependence; Z79.4 Long term (current) use of insulin; Z79.82 Long term (current) use of aspirin; Z79.02 Long term (current) use of antithrombotics/antiplatelets

== ENCOUNTER 2017-10-11 09:33 | Day surgery (SDC) | payer MEDICARE, OTHER ==
[2017-10-11] MEDS ORDERED: Lidocaine 2% Inj (20ml) ONE ×2 (10:31→13:41)
[2017-10-11] MEDS ORDERED: Midazolam 2 MG/2 ML VIAL ONE ×4 (10:31→14:18)
[2017-10-11] MEDS ORDERED: Iodixanol 320 MG/ML 200 ML BOTTLE IV ONE (10:32)
[2017-10-11] MEDS ORDERED: Iodixanol 320 MG/ML 100 ML BOTTLE IV ONE (10:32)
[2017-10-11] MEDS ORDERED: Nitroglycerin 50mg in D5W 50 MG/250 ML BOTTLE IV ONE (10:32)
[2017-10-11] MEDS ORDERED: Sodium Chloride 0.45% 1,000 ML IV SCH (11:15)
--- NOTE | 2017-10-11 11:31 | ED PDOC ---
Arrival/HPI - General Chief Complaint: Lower Extremity Problem/Injury Time Seen by Provider: 10/11/17 11:12 Historian: Patient - History of Present Illness Narrative History of Present Illness (Text): 10/11/17 11:31 A 77 year old male, whose past medical history includes hypertension, CAD/MD, diabetes type 2, hypothyroidism, and kidney stones, presents to the emergency department for ucler to right foot 1st digit. Patient reports he arrives for evaluation of revascularization procedure with Dr. Ricky Moore. Dr. Moore has ordered angiogram of right lower extremity. However due to patient's insurance, patient will go through same-day surgery. Patient denies any other complaints at this time. No PMD Past Medical History - Provider Review Nursing Documentation Reviewed: Yes - Tetanus Immunization Tetanus Immunization: Unknown - Cardiac Hx Cardiac Disorders: Yes (CAD,MD) Hx Hypertension: Yes - Pulmonary Hx Respiratory Disorders: Yes (SMOKED CIGARETTES 1UIT 40 YRS AGO.) - Neurological Hx Neurological Disorder: No - HEENT Hx HEENT Disorder: Yes Hx Cataracts: Yes Other/Comment: WEARS RX GLASSES - Renal Hx Renal Disorder: Yes Hx Kidney Stones: Yes - Endocrine/Metabolic Hx Diabetes Mellitus Type 2: Yes Hx Hypothyroidism: Yes - Hematological/Oncological Hx Blood Disorders: No - Integumentary Hx Dermatological Disorder: Yes Other/Comment: CELLULITIS OF TOE,DIABETIC FOOT INFECTION - Musculoskeletal/Rheumatological Hx Musculoskeletal Disorders: No Hx Falls: Yes - Gastrointestinal Hx Gastrointestinal Disorders: No - Genitourinary/Gynecological Hx Genitourinary Disorders: Yes Hx Prostate Problems: Yes (BPH) - Psychiatric Hx Psychophysiologic Disorder: No Hx Substance Use: No - Surgical History Hx Coronary Stent: Yes Hx Orthopedic Surgery: Yes (L KNEE) - Anesthesia Hx Anesthesia: Yes Hx Anesthesia Reactions: No Hx Malignant Hyperthermia: No - Suicidal Assessment Feels Threatened In Home Enviroment: No Family/Social History - Physician Review Nursing Documentation Reviewed: Yes Family/Social History: No Known Family HX Smoking Status: Former Smoker Hx Alcohol Use: Yes (BEER) Hx Substance Use: No Hx Substance Use Treatment: No Allergies/Home Meds Allergies/Adverse Reactions: Allergies No Known Allergies Allergy (Verified 08/02/17 20:19) Home Medications: Home Meds Medication Instructions Recorded Confirmed Atorvastatin Calcium [Lipitor] 20 mg PO DAILY 11/02/12 10/11/17 Solifenacin Succinate [Vesicare] 5 mg PO DAILY 11/02/12 10/11/17 Clopidogrel [Plavix] 75 mg PO DAILY 02/01/13 10/11/17 Allopurinol [Zyloprim] 300 mg PO DAILY 03/08/17 10/11/17 Aspirin [Aspirin EC] 325 mg PO DAILY 03/08/17 10/11/17 Insulin Aspart, Recombinant 10 unit SC ACBD 03/08/17 10/11/17 [Novolog] Insulin Detemir [Levemir] 20 unit SC HS 03/08/17 10/11/17 Amlodipine/Valsartan [Exforge 5 1 tab PO DAILY 10/11/17 10/11/17 mg-320 mg] Review of Systems - Physician Review All systems were reviewed & negative as marked: Yes - Review of Systems Constitutional: absent: Fevers Musculoskeletal: Other (right foot 1st digit ulcer) Physical Exam Vital Signs Reviewed: Yes Vital Signs Temp Pulse Resp BP Pulse Ox 10/11/17 11:19 98.0 F 69 18 158/77 H 97 Temperature: Afebrile Blood Pressure: Hypertensive Pulse: Regular Respiratory Rate: Normal Appearance: Positive for: Well-Appearing Pain Distress: None Mental Status: Positive for: Alert and Oriented X 3 - Systems Exam Upper Extremity: Present: Normal Inspection. No: Cyanosis, Edema Lower Extremity: Present: Other (ulcer to right foot; no cellulitis to the area) Neurological: Present: GCS=15, CN II-XII Intact, Speech Normal Skin: Present: Warm, Dry, Normal Color. No: Rashes Psychiatric: Present: Alert, Oriented x 3, Normal Insight, Normal Concentration Medical Decision Making ED Course and Treatment: 10/11/17 11:35 Impression: 77 year old male with right foot 1st digit ulcer. Physical exam shows ulcer to right foot, cellulitis to area; no other acute findings on examination. Plan: -- Labs -- Venous Blood Gas -- Blood Culture -- IV Fluids -- Right Foot X-Ray -- Reassess and disposition Progress Notes: 10/11/2017 12:26 Right Foot X-Ray IMPRESSION: Degenerative changes at the 1st MTP joint. No evidence of osteomyelitis Dictator: Justyn Ashford MD - Lab Interpretations Lab Results: 10/11/17 11:45 10/11/17 11:45 Lab Results 10/11/17 11:45: Sodium 145, Chloride 106, Potassium 4.9, Carbon Dioxide 24, Anion Gap 19, BUN 17, Creatinine 0.8, Est GFR ( Amer) > 60, Est GFR (Non- Af Amer) > 60, Random Glucose 169 H, Calcium 9.4, Total Bilirubin 0.5, AST 32, ALT 29, Alkaline Phosphatase 147 H D, Total Protein 7.6, Albumin 4.4, Globulin 3.2, Albumin/Globulin Ratio 1.4 10/11/17 11:45: pO2 52, VBG pH 7.26 L, VBG pCO2 54.0, VBG HCO3 24.2, VBG Total CO2 25.9, VBG O2 Sat (Calc) 87.6 H, VBG Base Excess -3.6 L, VBG Potassium 4.8, Sodium 137.0, Chloride 103.0, Glucose 176 H, Lactate 2.8 H, FiO2 21.0, Venous Blood Potassium 4.8 10/11/17 11:45: PT 10.7, INR 0.93, APTT 25.5 10/11/17 11:45: WBC 6.5, RBC 5.06, Hgb 15.9, Hct 46.0, MCV 90.9, MCH 31.4, MCHC 34.6, RDW 13.2, Plt Count 183, MPV 9.9, Gran % 71.6 H, Lymph % (Auto) 20.4 L, Cocke % (Auto) 4.9, Eos % (Auto) 2.5, Baso % (Auto) 0.6, Gran # 4.68, Lymph # ( Auto) 1.3, Cocke # (Auto) 0.3, Eos # (Auto) 0.2, Baso # (Auto) 0.04, ESR 13 - RAD Interpretation Radiology Orders: 10/11/17 10:46 CAR PERIPHERAL VASCULAR ORDER [VASCULAR] Stat 10/11/17 11:15 FOOT RIGHT 3 VIEWS ROUTINE [RAD] Stat - Medication Orders Current Medication Orders: Sodium Chloride (Sodium Chloride 0.45%) 1,000 mls @ 125 mls/hr IV .Q8H LORETTA Last Admin: 10/11/17 11:57 Dose: 125 mls/hr eMAR Start Stop Document 10/11/17 11:57 [facility] (Rec: 10/11/17 11:58 [facility] [id number]) Intravenous Solution Start Date 10/11/17 Start Time 11:58 - Scribe Statement The provider has reviewed the documentation as recorded by the Chavo Ruelas Provider [place] Attestation: All medical record entries made by the Scribe were at my direction and personally dictated by me. I have reviewed the chart and agree that the record accurately reflects my personal performance of the history, physical exam, medical decision making, and the department course for this patient. I have also personally directed, reviewed, and agree with the discharge instructions and disposition. Disposition/Present on Arrival - Present on Arrival History of DVT/PE: No History of Uncontrolled Diabetes: Yes Urinary Catheter: No History of Decub. Ulcer: No History Surgical Site Infection Following: None - Disposition
[2017-10-11 12:00] LABS: BASO # 0.04 K/mm3 (0.0-2.0); BASO % 0.6 % (0.0-3.0); EOS # 0.2 (0.0-0.7); EOS % 2.5 % (1.5-5.0); GRAN # 4.68 (1.4-6.5); GRAN % 71.6 % (50.0-68.0); HEMOGLOBIN 15.9 g/dL (14.0-18.0); LYMPH # 1.3 (1.2-3.4); LYMPH % 20.4 % (22.0-35.0); MEAN CELL VOLUME 90.9 fl (80.0-105.0); MEAN CORPUSCULAR HEMOGLOBIN 31.4 pg (25.0-35.0); MEAN CORPUSCULAR HGB CONC 34.6 g/dl (31.0-37.0); MEAN PLATELET VOLUME 9.9 fl (7.0-11.0); MONO # 0.3 (0.1-0.6); MONO % 4.9 % (1.0-6.0); RBC 5.06 10^6/uL (3.5-6.1); RED CELL DISTRIBUTION WIDTH 13.2 % (11.5-14.5); WHITE BLOOD COUNT 6.5 10^3/ul (4.5-11.0)
[2017-10-11 12:01] LABS: VENOUS BLOOD GAS BASE EXCESS -3.6 mmol/L (0.0-2.0); VENOUS BLOOD GAS PO2 52 mm/Hg (30-55); VENOUS BLOOD PH 7.26 (7.32-7.43)
[2017-10-11 12:07] LABS: ALB/GLOB RATIO 1.4 (1.1-1.8); ALBUMIN 4.4 g/dL (3.0-4.8); ALT/SGPT 29 U/L (7-56); AST/SGOT 32 U/L (17-59); BLOOD UREA NITROGEN 17 mg/dL (7-21); CALCIUM 9.4 mg/dL (8.4-10.5); GFR AFRICAN-AMERICAN > 60; GFR NON-AFRICAN AMERICAN > 60
[2017-10-11 12:08] LABS: INR 0.93 (0.93-1.08); PARTIAL THROMBOPLASTIN TIME 25.5 Seconds (25.1-36.5); PROTHROMBIN TIME 10.7 SECONDS (9.4-12.5)
--- NOTE | 2017-10-11 12:27 | RAD ---
PROCEDURE: Right Foot Radiographs. HISTORY: right toe ulcer COMPARISON: 08/02/2017 FINDINGS: BONES: Normal. No fracture. JOINTS: There is joint space narrowing at the 1st MTP joint SOFT TISSUES: Normal. OTHER FINDINGS: None. IMPRESSION: Degenerative changes at the 1st MTP joint. No evidence of osteomyelitis
[2017-10-11] MEDS ORDERED: Oxycodone/Acetaminophen 5/325 mg Tab PO PRN (15:05)
[2017-10-11] MEDS ORDERED: Insulin Lispro (humaLOG) MIX 75/25(10 ml) SC SCH (16:30)
[2017-10-11] MEDS ORDERED: INSULIN ASPART RECOMBINANT 10 UNIT SC SCH (16:30)
[2017-10-11] MEDS: Sodium Chloride 0.45% 1,000 ML IV SCH (16:35)
[2017-10-11 17:19] LABS: VENOUS BLOOD GAS BASE EXCESS -0.2 mmol/L (0.0-2.0); VENOUS BLOOD GAS PO2 24 mm/Hg (30-55); VENOUS BLOOD PH 7.33 (7.32-7.43)
[2017-10-11] MEDS: Insulin Lispro 1 UNITS/0.01 ML SC SCH (17:50)
[2017-10-11] MEDS ORDERED: GLYBURIDE PO SCH (18:00)
[2017-10-11] MEDS ORDERED: METFORMIN HCL PO SCH (18:00)
--- NOTE | 2017-10-11 19:45 | VASCULAR ---
PROCEDURE: 1. Abdominal aortogram and bilateral lower extremity runoff with contralateral groin and ipsilateral pedal punctures 2. Right anterior tibial artery angioplasty and stent placement 3. Mid right peroneal artery angioplasty HISTORY: Severe peripheral vascular disease. Ischemic right great toe ulceration. Diabetes. PHYSICIAN(S): Ricky Moore M.D. TECHNIQUE: The relative risks and indications of the procedure were explained to the patient and consent obtained. The patient was hydrated prior to the procedure and the appropriate labs drawn. The patient was placed supine on the arteriogram table and the left groin prepped and draped in the usual sterile fashion. Conscious sedation and monitoring were provided throughout the procedure by a nurse. Via a left common femoral artery approach, a 5 [place] sheath was placed in the left groin. Through the sheath and over a guidewire, a 5 [place] flush catheter was placed in the abdominal aorta at the level of the renal arteries and a PA DSA abdominal aortogram performed. The catheter was pulled down to the aortic bifurcation and bilateral oblique DSA pelvic arteriograms performed. Overlapping bilateral lower extremity DSA arteriograms were obtained from the inguinal ligaments to the ankles. A 0.035 angled Glidewire was advanced over the bifurcation and placed in the distal right SFA. A 6 [place] 65 cm destination sheath was placed in the mid right SFA. Heparin 5000 units IV and nitroglycerin in 250 mcg aliquots were given. The stenoses in the mid right peroneal artery were easily crossed with a 5 [place] catheter angled Glidewire. Exchange is made for a 0.014 support wire. The mid right peroneal artery was dilated with a 3.5 mm balloon. A good angiographic result was obtained. Attempts at crossing the occluded right anterior tibial artery a antegrade direction were unsuccessful. Only about 4 cm of the occluded vessel could be engaged with a guidewire. Subsequently the right foot was prepped and draped usual sterile fashion. 1 percent xylocaine was used to anesthetize the skin soft tissues. Under direct ultrasound guidance, the right anterior tibial artery at the ankle was punctured in a retrograde direction with a micropuncture set. Initial attempts across seen in a retrograde fashion with 0.014 in 0.018 guidewires were unsuccessful. Subsequently an 5 mm snare was placed in the proximal right anterior tibial artery from a contralateral approach. 0.014 guidewire from the retrograde approach was advanced through the snare its secured. The wire was removed via the left groin and both ends controlled. A 0.014 catheter was placed over the guidewire and a new 0.014 support wire placed in the dorsalis pedis artery. The length of the right anterior tibial artery was dilated with 3.0 and 3.5 mm balloons. A suboptimal result was obtained at the origin. Subsequently a 3.5 x 38 mm drug-eluting stent was deployed at the origin of the right anterior tibial artery. The distal right anterior tibial artery was dilated with 3.0 balloon. Completion angiograms were obtained. The pedal access was removed and hemostasis obtained with manual pressure. The left groin sheath was removed and hemostasis obtained with a Perclose device. The patient tolerated the procedure well. FINDINGS: There are single renal arteries bilaterally which are widely patent and normal in appearance. The nephrograms are symmetric in appearance. The infrarenal abdominal aorta is with the calcified and widely patent. The common iliac arteries are calcified and patent. The external iliac arteries are mildly tortuous and patent. The internal iliac arteries are patent bilaterally.. Right lower extremity: The right common femoral artery is patent. The right profunda femoral artery is patent. The right SFA and popliteal arteries are calcified smoothly disease without radiographically significant stenosis. There is severe right trifurcation and tibial occlusive disease. The right anterior tibial and posterior tibial arteries are occluded. Focal severe stenoses are seen in the mid right peroneal artery. There is reconstitution of the distal right anterior tibial artery which supplies the dorsalis pedis artery. The plantar arch is occluded. Numerous collaterals are present. Left lower extremity: Left common femoral artery is patent. The left profunda femoral artery is patent. The left superficial femoral artery is calcified and patent with multiple mild stenoses. The left popliteal artery is obscured by a knee replacement. Once again there is severe left trifurcation and tibial occlusive disease. The left anterior tibial and posterior tibial arteries are occluded. Left peroneal artery is a predominant supply the foot. There is a moderate stenosis of the left popliteal artery below the knee.. IMPRESSION: 1.Successful right peroneal artery angioplasty 2. Successful long segment right anterior tibial artery recanalization with angioplasty and proximal stent placement. 3. 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
[2017-10-11] MEDS ORDERED: Insulin Detemir 100 units/ml Vial (Levemir) SC SCH (22:00)
[2017-10-11 23:58] VITALS: O2SAT 94
[2017-10-12] MEDS: Sodium Chloride 0.45% 1,000 ML IV SCH ×2 (01:47→02:50)
[2017-10-12 06:02] LABS: MEAN CELL VOLUME 90.7 fl (80.0-105.0); MEAN CORPUSCULAR HEMOGLOBIN 31.4 pg (25.0-35.0); MEAN CORPUSCULAR HGB CONC 34.6 g/dl (31.0-37.0); RBC 4.4 10^6/uL (3.5-6.1); WHITE BLOOD COUNT 6.5 10^3/ul (4.5-11.0)
[2017-10-12 06:06] LABS: HEMOGLOBIN 13.8 g/dL (14.0-18.0)
[2017-10-12 06:29] LABS: BLOOD UREA NITROGEN 13 mg/dL (7-21); CALCIUM 8.8 mg/dL (8.4-10.5); GFR AFRICAN-AMERICAN > 60; GFR NON-AFRICAN AMERICAN > 60
[2017-10-12] MEDS: Insulin Lispro 1 UNITS/0.01 ML SC SCH (08:48)
[2017-10-12] MEDS ORDERED: Non Formulary Medication (Amlodipine/Valsartan [Exforge 5-320 Mg Tablet] 1 TAB) PO SCH (10:00)
[2017-10-12] MEDS ORDERED: SOLIFENACIN SUCCINATE 5 MG PO SCH ×2 (10:00)
[2017-10-12] MEDS ORDERED: Aspirin 325 mg EC Tablets PO SCH (10:00)
[2017-10-12 10:43] VITALS: BMI 31.1
[2017-10-12 12:11] VITALS: BP 142/85; RESP 20; TEMP 98.2
[2017-10-12 15:04] VITALS: PULSE 76
== END 2017-10-12 16:15 | disposition home or self-care (01) ==
LOC: ED 09:33 → CATH 12:29 → 2RNO 14:30 → CATH 10-12 16:15
PROVIDERS: ATTEND Radiology Vascular & Interventional Radiology
DX: E11.51 Type 2 diabetes mellitus with diabetic peripheral angiopathy without gangrene (principal); E11.621 Type 2 diabetes mellitus with foot ulcer; L97.519 Non-pressure chronic ulcer of other part of right foot with unspecified severity; E03.9 Hypothyroidism, unspecified; I25.2 Old myocardial infarction; I25.10 Atherosclerotic heart disease of native coronary artery without angina pectoris; I10 Essential (primary) hypertension; N40.0 Benign prostatic hyperplasia without lower urinary tract symptoms; Z95.5 Presence of coronary angioplasty implant and graft; Z87.891 Personal history of nicotine dependence
CPT/HCPCS: 36415; 37230; 37232; 73630; 75625; 75716; 80048; 80053; 82803; 82948 ×2; 85025; 85027; 85610; 85651; 85730; 86140; 87040; 99152; 99153; 99285; C1725 ×6; C1760 ×2; C1769 ×8; C1874; C1887 ×2; C1894; J0690; J1644 ×2; J2250; J2405; J3010; J7030 ×2; Q9966; Q9967